=== PATIENT | male | born 1945 | race Caucasian/White ===

== ENCOUNTER 2016-06-07 21:30 | Inpatient (IN) | payer MEDICARE, OTHER ==
[~2016-06-07] VITALS: Ht 177.8 cm; Wt 80.7 kg
[2016-06-07 23:23] LABS: BASOPHILS % (AUTO) 0.4 % (0.0-2.0); DIFF TOTAL % 100 %; EOSINOPHILS # (AUTO) 0.2 /CMM (0.0-0.7); EOSINOPHILS % (AUTO) 3.1 % (0.0-6.0); HEMATOCRIT 44 % (39-51); HEMOGLOBIN 15.1 g/dL (13.5-17.5); LYMPHOCYTES # (AUTO) 1.4 /CMM (0.8-4.8); MEAN CORPUSCULAR HEMOGLOBIN 29 PG (26.0-33.0); MEAN CORPUSCULAR HGB CONC 34 g/dl (31.0-36.0); MEAN CORPUSCULAR VOLUME 86 fL (80-96); MONOCYTES # (AUTO) 0.7 /CMM (0.1-1.30); MONOCYTES % (AUTO) 9.8 % (2.0-12.0); NEUTROPHILS # (AUTO) 4.5 /CMM (1.8-8.9); NEUTROPHILS % (AUTO) 65.7 % (43.0-81.0); PLATELET COUNT (AUTO) 292 /CMM (150-450); RED BLOOD CELL COUNT(AUTO) 5.16 MIL/uL (4.5-6.0); WHITE BLOOD COUNT (AUTO) 6.9 K/uL (4.3-11.0)
[2016-06-07 23:28] LABS: ANION GAP 12 (5-14); CALCIUM, SERUM 8.6 mg/dL (8.5-10.1); CARBON DIOXIDE 28 mmol/L (21-32); CHLORIDE 106 mmol/L (98-107); CREATININE 1.2 mg/dL (0.6-1.3); GFR 60 mL/min (>60); GLUCOSE 93 mg/dL (74-106); POTASSIUM 3.7 mmol/L (3.5-5.1); SODIUM SERUM 142 mmol/L (136-145); UREA NITROGEN, BLOOD 23 mg/dL (7-18)
[2016-06-07 23:33] LABS: ALANINE AMINOTRANSFERASE 22 U/L (12-78); ALBUMIN 3.7 g/dL (3.4-5.0); ASPARTATE AMINOTRANSFERASE 20 U/L (15-37); BILIRUBIN,DIRECT 0.1 mg/dL (0.0-0.2); BILIRUBIN,TOTAL 0.9 mg/dL (0.2-1.0); INDIRECT BILIRUBIN 0.8 mg/dL (0.0-1.1); TOTAL PROTEIN, SERUM 6.8 g/dL (6.4-8.2)
[2016-06-07 23:35] LABS: ACETAMINOPHEN 0 ug/ml (10-30); SALICYLATE < 0.2 mg/dL (2.8-20.0)
[2016-06-08] MEDS ORDERED: MAG HYDROX/AL HYDROX/SIMETH 30 ML UDC PO PRN (01:00)
[2016-06-08] MEDS ORDERED: LORAZEPAM 0.5 MG TABLET PO PRN (01:00)
[2016-06-08] MEDS ORDERED: MAGNESIUM HYDROXIDE 30 ML UDC PO PRN (01:00)
[2016-06-08] MEDS ORDERED: TEMAZEPAM 7.5 MG CAPSULE ONE (01:07)
[2016-06-08] MEDS: TEMAZEPAM 7.5 MG CAPSULE PO PRN ×2 (01:53→21:01)
[2016-06-08] MEDS ORDERED: OLAN5TAB3 PO (02:02)
[2016-06-08] MEDS ORDERED: DULO20CA PO (02:02)
[2016-06-08] MEDS ORDERED: TRAZ-147 PO (02:02)
[2016-06-08] MEDS ORDERED: BUPR150T5 PO (02:02)
[2016-06-08 03:30] VITALS: BP 122/72
[2016-06-08] MEDS ORDERED: ACETAMINOPHEN 325 MG TABLET ONE (04:56)
[2016-06-08] MEDS ORDERED: LORAZEPAM 0.5 MG TABLET ONE (04:59)
[2016-06-08] MEDS: ACETAMINOPHEN 325 MG TABLET PO PRN ×2 (05:43→21:01)
[2016-06-08 08:00] VITALS: BP 130/85
[2016-06-08 16:00] VITALS: BP 133/76
[2016-06-08] MEDS: LORAZEPAM 1 MG TABLET PO PRN (18:14)
[2016-06-08 20:00] VITALS: BP 131/88
[2016-06-08] MEDS: TRAZODONE 50 MG TABLET PO SCH (21:01)
[2016-06-08] MEDS: OLANZAPINE 10 MG TABLET PO SCH (21:01)
[2016-06-09 07:52] LABS: BASOPHILS % (AUTO) 0.5 % (0.0-2.0); DIFF TOTAL % 100 %; EOSINOPHILS # (AUTO) 0.3 /CMM (0.0-0.7); HEMATOCRIT 46 % (39-51); HEMOGLOBIN 15.9 g/dL (13.5-17.5); LYMPHOCYTES # (AUTO) 1.2 /CMM (0.8-4.8); LYMPHOCYTES % (AUTO) 23.6 % (20.0-44.0); MEAN CORPUSCULAR HEMOGLOBIN 29 PG (26.0-33.0); MEAN CORPUSCULAR HGB CONC 35 g/dl (31.0-36.0); MEAN CORPUSCULAR VOLUME 84 fL (80-96); MONOCYTES # (AUTO) 0.4 /CMM (0.1-1.30); MONOCYTES % (AUTO) 7.3 % (2.0-12.0); NEUTROPHILS # (AUTO) 3.2 /CMM (1.8-8.9); NEUTROPHILS % (AUTO) 63.6 % (43.0-81.0); PLATELET COUNT (AUTO) 256 /CMM (150-450); RED BLOOD CELL COUNT(AUTO) 5.46 MIL/uL (4.5-6.0)
[2016-06-09 07:57] LABS: CREATININE 1.3 mg/dL (0.6-1.3)
[2016-06-09 08:14] VITALS: BP 112/69
[2016-06-09] MEDS: buPROPion SR 150 MG TABLET.ER PO SCH (08:18)
[2016-06-09] MEDS: ACETAMINOPHEN 325 MG TABLET PO PRN (11:02)
[2016-06-09 16:00] VITALS: BP 133/61
[2016-06-09 20:00] VITALS: BP 141/96
[2016-06-09] MEDS: TRAZODONE 50 MG TABLET PO SCH (22:18)
[2016-06-09] MEDS: OLANZAPINE 10 MG TABLET PO SCH (22:18)
[2016-06-09] MEDS: TEMAZEPAM 7.5 MG CAPSULE PO PRN (22:18)
[2016-06-10] MEDS: buPROPion SR 150 MG TABLET.ER PO SCH (07:59)
[2016-06-10 08:00] VITALS: BP 128/96
[2016-06-10] MEDS: ACETAMINOPHEN 325 MG TABLET PO PRN ×2 (08:17→17:27)
[2016-06-10] MEDS ORDERED: CARBAMAZEPINE 200 MG TABLET PO SCH (11:30)
[2016-06-10] MEDS ORDERED: HYDROCODONE/APAP 10/325MG 1 EA TABLET PO ONE (11:30)
[2016-06-10] MEDS ORDERED: BACLOFEN (10 MG) 10 MG TABLET PO SCH (13:00)
[2016-06-10 16:12] VITALS: BP 146/76
[2016-06-10] MEDS: LORAZEPAM 1 MG TABLET PO PRN (17:24)
[2016-06-10 20:30] VITALS: BP 136/59
[2016-06-10] MEDS: TRAZODONE 50 MG TABLET PO SCH (21:24)
[2016-06-10] MEDS: OLANZAPINE 10 MG TABLET PO SCH (21:24)
[2016-06-10] MEDS: TEMAZEPAM 7.5 MG CAPSULE PO PRN (21:27)
[2016-06-10] MEDS ORDERED: GABAPENTIN 300 MG CAPSULE PO SCH (22:00)
[2016-06-11] MEDS: ACETAMINOPHEN 325 MG TABLET PO PRN (05:59)
[2016-06-11] MEDS: buPROPion SR 150 MG TABLET.ER PO SCH (08:06)
[2016-06-11 08:54] VITALS: BP 138/88
[2016-06-11 16:10] VITALS: BP 137/77
[2016-06-11 20:00] VITALS: BP 120/90
[2016-06-11] MEDS: OLANZAPINE 10 MG TABLET PO SCH (22:28)
[2016-06-11] MEDS: TRAZODONE 50 MG TABLET PO SCH (22:28)
[2016-06-11] MEDS: TEMAZEPAM 7.5 MG CAPSULE PO PRN (22:29)
[2016-06-12 08:00] VITALS: BP 129/90
[2016-06-12] MEDS: buPROPion SR 150 MG TABLET.ER PO SCH (08:02)
[2016-06-12 16:00] VITALS: BP 145/60
[2016-06-12 19:39] VITALS: BP 112/91
[2016-06-12] MEDS: OLANZAPINE 10 MG TABLET PO SCH (22:04)
[2016-06-12] MEDS: TEMAZEPAM 7.5 MG CAPSULE PO PRN (22:04)
[2016-06-12] MEDS: TRAZODONE 50 MG TABLET PO SCH (22:04)
[2016-06-13] MEDS: LORAZEPAM 1 MG TABLET PO PRN (00:20)
[2016-06-13 08:00] VITALS: BP 130/85
[2016-06-13] MEDS: buPROPion SR 150 MG TABLET.ER PO SCH (09:18)
[2016-06-13 16:00] VITALS: BP 138/96
[2016-06-13 19:31] VITALS: BP 124/80
[2016-06-13] MEDS: TEMAZEPAM 7.5 MG CAPSULE PO PRN (21:16)
[2016-06-13] MEDS: OLANZAPINE 10 MG TABLET PO SCH (21:17)
[2016-06-13] MEDS: TRAZODONE 50 MG TABLET PO SCH (21:17)
[2016-06-14] MEDS: LORAZEPAM 1 MG TABLET PO PRN (00:09)
[2016-06-14 08:00] VITALS: BP 125/77
[2016-06-14] MEDS: buPROPion SR 100 MG TABLET.ER PO SCH (08:55)
[2016-06-14] MEDS: ACETAMINOPHEN 325 MG TABLET PO PRN (15:58)
[2016-06-14 16:00] VITALS: BP 128/90
[2016-06-14 20:08] VITALS: BP 146/93
[2016-06-14] MEDS: TRAZODONE 50 MG TABLET PO SCH (21:45)
[2016-06-14] MEDS: OLANZAPINE 10 MG TABLET PO SCH (21:45)
[2016-06-14] MEDS: TEMAZEPAM 7.5 MG CAPSULE PO PRN (22:39)
[2016-06-15] MEDS: LORAZEPAM 1 MG TABLET PO PRN (05:42)
[2016-06-15] MEDS: ACETAMINOPHEN 325 MG TABLET PO PRN ×2 (07:46→16:31)
[2016-06-15] MEDS: buPROPion SR 100 MG TABLET.ER PO SCH (07:47)
[2016-06-15 08:00] VITALS: BP 100/60
[2016-06-15 16:00] VITALS: BP 143/92
[2016-06-15 20:42] VITALS: BP 128/89
[2016-06-15] MEDS: TRAZODONE 50 MG TABLET PO SCH (21:13)
[2016-06-15] MEDS: OLANZAPINE 10 MG TABLET PO SCH (21:13)
[2016-06-16] MEDS: ACETAMINOPHEN 325 MG TABLET PO PRN ×2 (04:02→11:24)
[2016-06-16 07:03] LABS: CALCIUM, SERUM 8.8 mg/dL (8.5-10.1); CREATININE 1.3 mg/dL (0.6-1.3); POTASSIUM 4.4 mmol/L (3.5-5.1)
[2016-06-16 08:23] VITALS: BP 134/85
[2016-06-16 08:26] VITALS: BP 134/85
[2016-06-16] MEDS: buPROPion SR 100 MG TABLET.ER PO SCH (09:00)
[2016-06-16] MEDS: LORAZEPAM 1 MG TABLET PO PRN (11:25)
[2016-06-16 16:00] VITALS: BP 110/64
[2016-06-16] MEDS ORDERED: GABAPENTIN 300 MG CAPSULE PO SCH (17:00)
[2016-06-16] MEDS: HYDROCODONE/APAP 5/325MG 1 EACH TABLET PO PRN (17:11)
[2016-06-16 20:00] VITALS: BP 114/62
[2016-06-16] MEDS: OLANZAPINE 10 MG TABLET PO SCH (22:47)
[2016-06-16] MEDS: TEMAZEPAM 7.5 MG CAPSULE PO PRN (22:47)
[2016-06-16] MEDS: TRAZODONE 50 MG TABLET PO SCH (22:47)
[2016-06-17] MEDS: LORAZEPAM 1 MG TABLET PO PRN (03:15)
[2016-06-17 08:00] VITALS: BP 123/71
[2016-06-17] MEDS: buPROPion SR 100 MG TABLET.ER PO SCH (08:37)
[2016-06-17 15:54] VITALS: BP 141/89
[2016-06-17] MEDS: HYDROCODONE/APAP 5/325MG 1 EACH TABLET PO PRN (16:05)
[2016-06-17 20:00] VITALS: BP 126/57
[2016-06-17] MEDS: DULOXETINE HCL 30 MG CAPSULE.DR PO SCH (21:42)
[2016-06-17] MEDS: TRAZODONE 50 MG TABLET PO SCH (21:42)
[2016-06-17] MEDS: TEMAZEPAM 7.5 MG CAPSULE PO PRN (21:43)
[2016-06-17] MEDS: OLANZAPINE 10 MG TABLET PO SCH (21:43)
[2016-06-18] MEDS: LORAZEPAM 1 MG TABLET PO PRN (00:24)
[2016-06-18] MEDS: HYDROCODONE/APAP 5/325MG 1 EACH TABLET PO PRN ×2 (05:53→21:32)
[2016-06-18 08:00] VITALS: BP 139/91
[2016-06-18] MEDS: buPROPion SR 100 MG TABLET.ER PO SCH (10:38)
[2016-06-18] MEDS: VERAPAMIL HCL 80 MG TABLET PO SCH ×3 (14:00→21:00)
[2016-06-18 16:22] VITALS: BP 119/80
[2016-06-18 20:00] VITALS: BP 124/81
[2016-06-18] MEDS: TRAZODONE 50 MG TABLET PO SCH (21:31)
[2016-06-18] MEDS: DULOXETINE HCL 30 MG CAPSULE.DR PO SCH (21:31)
[2016-06-18] MEDS: OLANZAPINE 10 MG TABLET PO SCH (21:32)
[2016-06-19] MEDS: LORAZEPAM 1 MG TABLET PO PRN (04:27)
[2016-06-19] MEDS: VERAPAMIL HCL 80 MG TABLET PO SCH ×3 (04:29→21:25)
[2016-06-19 08:00] VITALS: BP 131/92
[2016-06-19] MEDS: buPROPion SR 100 MG TABLET.ER PO SCH (08:00)
[2016-06-19 16:00] VITALS: BP 132/95
[2016-06-19 19:36] VITALS: BP 129/85
[2016-06-19 21:25] VITALS: BP 148/87
[2016-06-19] MEDS: OLANZAPINE 10 MG TABLET PO SCH (21:26)
[2016-06-19] MEDS: DULOXETINE HCL 30 MG CAPSULE.DR PO SCH (21:26)
[2016-06-19] MEDS: TRAZODONE 50 MG TABLET PO SCH (21:26)
[2016-06-19] MEDS: TEMAZEPAM 7.5 MG CAPSULE PO PRN (22:46)
[2016-06-20] MEDS: LORAZEPAM 1 MG TABLET PO PRN (03:04)
[2016-06-20] MEDS: VERAPAMIL HCL 80 MG TABLET PO SCH ×3 (05:00→21:49)
[2016-06-20 05:10] VITALS: BP 112/70
[2016-06-20 08:00] VITALS: BP 124/67
[2016-06-20] MEDS: buPROPion SR 100 MG TABLET.ER PO SCH (08:36)
[2016-06-20 16:00] VITALS: BP 114/78
[2016-06-20 19:57] VITALS: BP 143/91
[2016-06-20] MEDS: OLANZAPINE 10 MG TABLET PO SCH (21:48)
[2016-06-20] MEDS: TRAZODONE 50 MG TABLET PO SCH (21:48)
[2016-06-20] MEDS: DULOXETINE HCL 30 MG CAPSULE.DR PO SCH (21:48)
[2016-06-21 03:10] VITALS: BP 120/72
[2016-06-21] MEDS: LORAZEPAM 1 MG TABLET PO PRN (03:10)
[2016-06-21] MEDS: VERAPAMIL HCL 80 MG TABLET PO SCH ×3 (05:00→20:54)
[2016-06-21] MEDS: buPROPion SR 100 MG TABLET.ER PO SCH (09:17)
[2016-06-21 09:48] VITALS: BP 144/73
[2016-06-21 16:23] VITALS: BP 139/80
[2016-06-21 20:26] VITALS: BP 134/94
[2016-06-21] MEDS: OLANZAPINE 10 MG TABLET PO SCH (21:00)
[2016-06-21] MEDS: TRAZODONE 50 MG TABLET PO SCH (21:01)
[2016-06-21] MEDS: DULOXETINE HCL 30 MG CAPSULE.DR PO SCH (21:01)
[2016-06-21] MEDS: TEMAZEPAM 7.5 MG CAPSULE PO PRN (21:37)
[2016-06-22] MEDS: LORAZEPAM 1 MG TABLET PO PRN (02:51)
[2016-06-22] MEDS: VERAPAMIL HCL 80 MG TABLET PO SCH ×3 (06:00→21:00)
[2016-06-22] MEDS: buPROPion SR 100 MG TABLET.ER PO SCH (08:00)
[2016-06-22 08:14] VITALS: BP 127/76
[2016-06-22 16:29] VITALS: BP 147/83
[2016-06-22 20:12] VITALS: BP 105/54
[2016-06-22] MEDS: HYDROCODONE/APAP 5/325MG 1 EACH TABLET PO PRN (20:45)
[2016-06-22] MEDS: DULOXETINE HCL 30 MG CAPSULE.DR PO SCH (21:03)
[2016-06-22] MEDS: TRAZODONE 50 MG TABLET PO SCH (21:04)
[2016-06-22] MEDS: OLANZAPINE 10 MG TABLET PO SCH (21:05)
[2016-06-23] MEDS: VERAPAMIL HCL 80 MG TABLET PO SCH ×3 (05:43→21:25)
[2016-06-23 08:00] VITALS: BP 140/80
[2016-06-23] MEDS: buPROPion SR 100 MG TABLET.ER PO SCH (08:43)
[2016-06-23 16:00] VITALS: BP 127/80
[2016-06-23 20:00] VITALS: BP 122/72
[2016-06-23] MEDS: TRAZODONE 50 MG TABLET PO SCH (21:58)
[2016-06-23] MEDS: OLANZAPINE 10 MG TABLET PO SCH (21:59)
[2016-06-23] MEDS: DULOXETINE HCL 30 MG CAPSULE.DR PO SCH (21:59)
[2016-06-24] MEDS: LORAZEPAM 1 MG TABLET PO PRN ×2 (03:23→04:38)
[2016-06-24] MEDS: VERAPAMIL HCL 80 MG TABLET PO SCH ×3 (06:03→21:11)
[2016-06-24 08:00] VITALS: BP 112/63
[2016-06-24] MEDS: buPROPion SR 100 MG TABLET.ER PO SCH (08:42)
[2016-06-24 12:41] VITALS: BP 122/91
[2016-06-24 16:00] VITALS: BP 128/70
[2016-06-24 20:00] VITALS: BP 121/69
[2016-06-24] MEDS: DULOXETINE HCL 30 MG CAPSULE.DR PO SCH (22:11)
[2016-06-24] MEDS: OLANZAPINE 10 MG TABLET PO SCH (22:11)
[2016-06-24] MEDS: TRAZODONE 50 MG TABLET PO SCH (22:11)
[2016-06-25] MEDS: TEMAZEPAM 7.5 MG CAPSULE PO PRN (02:33)
[2016-06-25] MEDS: VERAPAMIL HCL 80 MG TABLET PO SCH ×3 (05:00→21:40)
[2016-06-25 08:02] VITALS: BP 123/82
[2016-06-25] MEDS: buPROPion SR 100 MG TABLET.ER PO SCH (08:21)
[2016-06-25 16:00] VITALS: BP 123/75
[2016-06-25 19:53] VITALS: BP 119/68
[2016-06-25] MEDS: TRAZODONE 50 MG TABLET PO SCH (22:06)
[2016-06-25] MEDS: OLANZAPINE 10 MG TABLET PO SCH (22:06)
[2016-06-25] MEDS: DULOXETINE HCL 30 MG CAPSULE.DR PO SCH (22:06)
[2016-06-25] MEDS: LORAZEPAM 1 MG TABLET PO PRN (22:38)
[2016-06-26] MEDS: VERAPAMIL HCL 80 MG TABLET PO SCH ×3 (05:40→21:22)
[2016-06-26 08:00] VITALS: BP 101/54
[2016-06-26] MEDS: buPROPion SR 100 MG TABLET.ER PO SCH (09:09)
[2016-06-26 16:00] VITALS: BP 120/77
[2016-06-26 20:09] VITALS: BP 134/79
[2016-06-26] MEDS: HYDROCODONE/APAP 5/325MG 1 EACH TABLET PO PRN (20:10)
[2016-06-26] MEDS: TRAZODONE 50 MG TABLET PO SCH (21:21)
[2016-06-26] MEDS: OLANZAPINE 10 MG TABLET PO SCH (21:22)
[2016-06-26] MEDS: DULOXETINE HCL 30 MG CAPSULE.DR PO SCH (21:22)
[2016-06-26] MEDS: LORAZEPAM 1 MG TABLET PO PRN (22:25)
[2016-06-27] MEDS: VERAPAMIL HCL 80 MG TABLET PO SCH ×3 (05:23→21:22)
[2016-06-27 08:30] VITALS: BP 127/75
[2016-06-27] MEDS: buPROPion SR 100 MG TABLET.ER PO SCH (08:53)
[2016-06-27 16:42] VITALS: BP 111/69
[2016-06-27 20:04] VITALS: BP 116/77
[2016-06-27] MEDS: DULOXETINE HCL 30 MG CAPSULE.DR PO SCH (21:20)
[2016-06-27] MEDS: TRAZODONE 50 MG TABLET PO SCH (21:20)
[2016-06-27] MEDS: OLANZAPINE 10 MG TABLET PO SCH (21:21)
[2016-06-27] MEDS: LORAZEPAM 1 MG TABLET PO PRN (22:38)
[2016-06-28] MEDS: VERAPAMIL HCL 80 MG TABLET PO SCH ×3 (05:00→21:00)
[2016-06-28] MEDS: buPROPion SR 100 MG TABLET.ER PO SCH (08:07)
[2016-06-28 08:22] VITALS: BP 116/74
[2016-06-28 16:24] VITALS: BP 136/92
[2016-06-28 20:12] VITALS: BP 102/57
[2016-06-28] MEDS: HYDROCODONE/APAP 5/325MG 1 EACH TABLET PO PRN (20:20)
[2016-06-28] MEDS: DULOXETINE HCL 30 MG CAPSULE.DR PO SCH (21:55)
[2016-06-28] MEDS: TRAZODONE 50 MG TABLET PO SCH (21:56)
[2016-06-28] MEDS: OLANZAPINE 10 MG TABLET PO SCH (21:56)
[2016-06-28] MEDS: LORAZEPAM 1 MG TABLET PO PRN (23:22)
[2016-06-29] MEDS: VERAPAMIL HCL 80 MG TABLET PO SCH ×2 (06:10→12:48)
[2016-06-29 08:00] VITALS: BP 113/63
[2016-06-29] MEDS: buPROPion SR 100 MG TABLET.ER PO SCH (08:00)
[2016-06-29 16:00] VITALS: BP 134/81
== END 2016-06-29 16:15 | DRG 885 ==
LOC: ER 21:32 → GPS 06-08 00:12
PROVIDERS: ADMIT Psychiatry & Neurology Psychiatry; ATTEND Psychiatry & Neurology Psychiatry
DX: F33.2 Major depressive disorder, recurrent severe without psychotic features (principal); N17.0 Acute kidney failure with tubular necrosis; F29 Unspecified psychosis not due to a substance or known physiological condition; Z90.49 Acquired absence of other specified parts of digestive tract
CPT/HCPCS: 36415; 80048-TC; 80061-TC; 80076-TC; 82565-TC; 84443-TC; 85025-TC; 97001-TC; A4606; G6038-TC; G6039-TC; G6040-TC; Z7610